=== PATIENT | female | born 1945 | race Caucasian/White ===

== ENCOUNTER 2018-11-08 09:12 | Observation (INO) ==
[2018-11-08] MEDS ORDERED: 0.9 % Sodium Chloride 1,000 ML IVC ONE (10:05)
--- NOTE | 2018-11-08 10:08 | Emergency Department Note ---
Disposition Clinical Impression: Near syncope, Hyponatremia, Hypokalemia Disposition: Admitted As Inpatient Condition: Fair Referrals: Willy Serrano DO [Primary Care Provider] - Forms: ED Satisfaction Letter General Adult HPI - General Chief complaint: ED Syncope Stated complaint: Syncopal Episode Time Seen by Provider: 11/08/18 09:22 Source: patient Mode of arrival: private vehicle Limitations: no limitations Nursing Notes Reviewed: Yes Vital Signs Reviewed: Yes - History of Present Illness HPI Narrative: Patient is a 73-year-old female with past medical history including hypertension, hypothyroidism, diabetes mellitus, anxiety presenting with chief complaint of near syncope for the past week. The patient states she has significant anxiety and she is prescribed Xanax 0.5 mg 4 times a day as needed. She states she has been under increased stress and anxiety for the past several weeks that she is moved with her to a condo. She states she has been taking more Xanax than prescribed and ran out approximately 5 days ago. She states she has not been able to see her psychiatrist since. For the past week, she has not been eating and drinking much. She complains of intermittent episodes of near syncope, feeling lightheaded and like she is going to pass out, while standing up and with ambulation. She denies loss of consciousness, falls, hitting her head. She denies vision changes, slurred speech, confusion, unilateral weakness or paresthesias. She is presenting here for further evaluation as her primary care physician is on vacation. She denies chest pain, shortness of breath, abdominal pain, nausea or vomiting. She denies lower extremity swelling, recent travel or surgery, hormone therapy, history of blood clots. Pain Scale: 0 All systems ED: reviewed and negative except as stated. Review of Systems: As Per HPI Constitutional: Denies: fever, chills Cardiovascular: Reports: syncope. Denies: chest pain, palpitations, edema Respiratory: Denies: cough, dyspnea Gastrointestinal: Denies: abdominal pain, nausea, vomiting Genitourinary: Denies: dysuria Musculoskeletal: Denies: back pain Neurological: Denies: headache, weakness Past Medical History - Past Medical History Attestation: Yes The following information was validated with the patient. Source: patient Medical history: Reports: diabetes, hypertension Psychiatric history: Reports: anxiety - Social History Smoking Status: Never smoker Smokeless Tobacco Status: No Alcohol use: Reports: rarely Drug use: Reports: none Physical Exam - General Limitations: no limitations General appearance: in no apparent distress, anxious - Head Head exam: atraumatic, normocephalic, normal inspection - Eye Eye exam: Present: normal appearance, PERRL, EOMI. Absent: conjunctival injection, nystagmus - ENT ENT exam: normal exam, normal oropharynx - Neck Neck exam: Present: normal inspection, trachea midline - Chest Chest inspection: Present: normal inspection, symmetric chest wall rise - Respiratory Respiratory exam: Present: normal lung sounds bilaterally. Absent: respiratory distress, wheezes - Cardiovascular Cardiovascular exam: Present: regular rate, normal rhythm, normal heart sounds, other (bilateral radial pulses equal) - Abdominal Exam Abdominal exam: Present: soft, Non-Tender. Absent: distention - Extremities Exam Extremities exam: Present: normal inspection, normal capillary refill. Absent: pedal edema, calf tenderness - Neurological Exam Neurological exam: Present: alert, oriented X3, CN II-XII intact. Absent: motor sensory deficit - Expanded Neurological Exam Speech: Present: fluid speech Cerebellar function: finger to nose: Normal Motor strength - LUE: 5/5 Motor strength - RUE: 5/5 Motor strength - LLE: 5/5 Motor strength - RLE: 5/5 Upper motor neuron exam: raul neglect: Absent bilaterally Sensory exam upper extremity: light touch: Normal Sensory exam lower extremity: light touch: Normal - Psychiatric Psychiatric exam: Present: normal affect, normal mood - Skin Skin exam: Present: warm, dry. Absent: diaphoresis, pallor Course Vital Signs Temperature 98.0 F 11/08/18 09:13 Pulse Rate 108 11/08/18 09:13 Respiratory Rate 20 11/08/18 09:13 Blood Pressure 157/90 11/08/18 09:13 O2 Sat by Pulse Oximetry 95 11/08/18 09:13 Temperature 98.0 F 11/08/18 09:13 Pulse Rate 86 11/08/18 10:32 Respiratory Rate 18 11/08/18 10:32 Blood Pressure 136/100 11/08/18 10:32 O2 Sat by Pulse Oximetry 97 11/08/18 10:32 Oxygen Delivery Oxygen Delivery Room Air Medical Decision Making - [facility] Narrative Medical decision making narrative: Patient is presenting with 1 week history of near-syncope. This has been preceded with increased stress and anxiety, decreased by mouth intake. Syncope may be secondary to hypovolemia. Patient has not had loss of consciousness, falls hitting her head, she has a normal physical exam, nonfocal neurologic exam. We will obtain electrolytes, CBC, BMP, obtain EKG to evaluate for arrhythmias. We will obtain chest x-ray as she has a dry cough for several weeks, urinalysis. Patient denies any chest pain, shortness of breath. We will give the patient a liter of fluids that she appears dry. We will have her ambulate as well. Disposition pending. 11:20 Labs and imaging reviewed. Chest x-ray shows cardiomegaly, no consolidation or evidence of pneumonia. She does have mild electrolyte abnormalities with sodium 127 and potassium 3.2. This is likely secondary to patient's decreased by mouth intake. She does have an elevated specific gravity however her BUN and creatinine are within normal limits. Her prior lab work shows her sodium to be 138-140 in the past. Will give her PO potassium pill. We will admit the patient for near syncope and hyponatremia. She will require cardiac monitoring as well. Hospitalist has been paged. She does not appear to have benzo withdrawal at this time. 1120 hrs.: With these labs and hyponatremia and her complaints I think it be best to bring her into the hospital. We will discuss with her and then hospitalist. 11:25 Discussed with hospitalist, Dr. Mustafa who accepts admission - Medical Records Medical records reviewed: Yes I reviewed the patient's medical records. - Lab Data Lab results reviewed: Yes I reviewed the patient's lab results. Result diagrams: 11/08/18 10:21 11/08/18 10:21 Lab Results 11/08/18 11/08/18 11/08/18 Range/Units 10:21 10:21 10:48 WBC 10.0 (4.3-11.1) K/mcL RBC 4.36 (3.82-4.97) M/mcL Hgb 11.6 (11.5-15.4) g/dL Hct 35.1 L (35.3-44.9) % MCV 80.5 L (83.0-100.0) fL MCH 26.6 L (28.0-33.3) pg MCHC 33.0 (31.6-35.5) g/dL RDW 15.2 H (11.5-14.5) % Plt Count 414 H (140-400) K/mcL MPV 8.9 L (9.4-12.4) fL Immature Gran % 0.3 (0-4) % Seg Neutrophils % 81.2 % Lymphocytes % 11.2 % Monocytes % 7.0 % Eosinophils % 0.1 % Basophils % 0.2 % Neutrophils # 8.1 (1.6-8.9) K/mcL Lymphocytes # 1.1 (0.6-4.6) K/mcL Monocytes # 0.7 (0.0-1.3) K/mcL Eosinophils # 0.0 (0.0-0.6) K/mcL Basophils # 0.0 (0.0-0.2) K/mcL Sodium 127 L (136-145) mEq/L Potassium 3.2 L (3.5-5.1) mEq/L Chloride 91 L (98-107) mEq/L Carbon Dioxide 24 (23-29) mEq/L BUN 13 (8-23) mg/dL Creatinine 0.67 (0.60-1.20) mg/dL Est GFR ( Amer) > 60 (> 60) Est GFR (Non-Af Amer) > 60 (> 60) BUN/Creatinine Ratio 19 (6-26) Glucose 163 H (70-105) mg/dL Calculated Osmolality 268 L (280-300) Calcium 10.4 H (8.6-10.3) mg/dL Urine Color Dark Yellow (Yellow) Urine Clarity Clear (Clear) Urine pH 6.0 (5.0-8.0) pH Units Ur Specific [place] 1.026 H (1.010-1.025) Urine Protein 30 H (Neg-Trace) mg/dL Urine Glucose (UA) Normal (Normal) mg/dL Urine Ketones Trace H (Negative) mg/dL Urine Blood Negative (Negative) Urine Nitrite Negative (Negative) Urine Bilirubin Negative (Negative) Urine Urobilinogen Normal (Normal) mg/dL Ur Leukocyte Esterase Negative (Negative) Urine Microscopic RBC 0-3 (0-3) per hpf Urine Microscopic WBC 0-3 (0-3) per hpf Ur Squamous Epith Cells Many H (None-Few) per lpf Urine Bacteria Few (None-Few) per hpf Hyaline Casts Few (None-Few) per lpf Urine Yeast Test Not Performed - Radiology Data Radiology results reviewed: Yes I reviewed the patient's radiology results. Chest X-Ray 11/08/18 10:06 IMPRESSION: 1. No active pulmonary disease. 2. Cardiomegaly without overt failure. 3. Retrocardiac density. This was shown to be a a large hiatal hernia on a prior CT scan dated 05/28/2012. D/ / Rudy Franklin MD / Rudy Franklin MD Interpreting Provider: Rudy Franklin MD - EKG Data EKG #1 EKG attestation: Yes I reviewed and interpreted this EKG. EKG results narrative: EKG was obtained at 1046 shows sinus rhythm with heart rate 96, NC interval 184, QRS duration 117, QTC 458. Incomplete right bundle branch block. No ST sierra vation or depression. Attestation Statement - Attestation Attestation: This documentation is done with the assistance of Dragon dictation. Despite efforts made to ensure accuracy, there may be inaccuracies in calculating machine operator or spelling and typographical errors. I examined this patient and my medical decision-making was reviewed with the Resident Physician. I agree with the documented findings, disposition and treatment plan as described except to the extent set forth below. Patient seen and evaluated today by Dr. Ivory and myself, I agree with her evaluation and management plan, I supervised the care the patient's stay. Patient presents today with some generalized weakness. She states she thinks she had a stroke last week but did not get seen. She says it has not gotten any worse. She speaking okay she is has a flight of ideas. She tells me that she was taking Xanax 4 times a day and stopped taking that a week ago. She did not she occasionally sweats she does not have any chest pain. She has nothing focal neuro exam. Labs on her give her some benzodiazepines and reassess. She is in agreement with this plan.
[2018-11-08 10:33] LABS: Basophils % 0.2 %; Eosinophils % 0.1 %; Hematocrit 35.1 % (35.3-44.9); Hemoglobin 11.6 g/dL (11.5-15.4); Immature Granulocytes % 0.3 % (0-4); Lymphocytes # 1.1 K/mcL (0.6-4.6); Lymphocytes % 11.2 %; Mean Corpuscular Hemoglobin 26.6 pg (28.0-33.3); Mean Corpuscular Volume 80.5 fL (83.0-100.0); Mean Platelet Volume 8.9 fL (9.4-12.4); Monocytes # 0.7 K/mcL (0.0-1.3); Neutrophils # 8.1 K/mcL (1.6-8.9); Platelet Count 414 K/mcL (140-400); Red Blood Count 4.36 M/mcL (3.82-4.97); Red Cell Distribution Width 15.2 % (11.5-14.5); Segmented Neutrophils % 81.2 %
[2018-11-08 10:53] LABS: BUN/Creatinine Ratio 19 (6-26); Blood Urea Nitrogen 13 mg/dL (8-23); Calcium 10.4 mg/dL (8.6-10.3); Carbon Dioxide 24 mEq/L (23-29); Chloride 91 mEq/L (98-107); Glucose 163 mg/dL (70-105); Osmolality,Calculated 268 (280-300); Potassium 3.2 mEq/L (3.5-5.1); Sodium 127 mEq/L (136-145); eGFR For Non-African Americans > 60 (> 60)
[2018-11-08 10:59] LABS: Bilirubin,Urine Negative (Negative); Blood,Urine Negative (Negative); Clarity,Urine Clear (Clear); Color,Urine Dark Yellow (Yellow); Glucose,Urine (UA) Normal (Normal); Ketones,Urine Trace mg/dL (Negative); Leukocyte Esterase,Urine Negative (Negative); Nitrite,Urine Negative (Negative); Protein,Urine 30 mg/dL (Neg-Trace); Specific Gravity,Urine 1.026 (1.010-1.025); Urobilinogen,Urine Normal (Normal)
[2018-11-08 11:01] LABS: Squamous Epithelial Cell,Urine Many per lpf (None-Few); WBC,Urine 0-3 per hpf (0-3)
[2018-11-08 11:17] LABS: Hyaline Casts,Urine Few per lpf (None-Few)
[2018-11-08 11:18] LABS: RBC,Urine 0-3 per hpf (0-3)
[2018-11-08 11:19] LABS: Bacteria,Urine Few per hpf (None-Few)
[2018-11-08] MEDS ORDERED: Naloxone 0.4 MG/ML INJ IVP PRN (11:30)
[2018-11-08] MEDS ORDERED: Ondansetron 4 MG/2 ML VIAL IVP ONE (11:30)
[2018-11-08] MEDS ORDERED: ALPRAZolam 0.5 MG TABLET PO PRN (11:32)
[2018-11-08 11:56] LABS: Troponin I < 0.03 ng/mL (< 0.04)
[2018-11-08] MEDS: 0.9 % Sodium Chloride 1,000 ML IVC SCH (12:16)
[2018-11-08] MEDS ORDERED: Dextrose Gel 15 GM/37.5 ML TUBE PO PRN ×2 (12:59)
[2018-11-08] MEDS ORDERED: D5% in Water 1,000 ML IVC PRN (12:59)
[2018-11-08] MEDS ORDERED: *HR* Dextrose 50 % in Water (Syg) 50 ML SYRINGE IVP PRN (12:59)
--- NOTE | 2018-11-08 13:00 | Internal Med History&Physical ---
Date of Encounter: 11/08/18 Time of Encounter: 12:00 Internal Medicine - H&P: HPI Chief complaint: Dizziness, feeling like passing out, disorganized speech History of present illness: Ms. Perea is a 73 year old female with pmh of diabetes, hypertension, hypothyroidism presenting with complaints of intermittent light headedness and confusion of about a week's duration. Patient says she recently moved houses and the movement must have stressed her out. She also says she ran out of her xanax about a week ago. In the last one week, according to her son, she has had spells of confusion and tangential thought process and confabulation. Like she has been making up stuff that didn't happen and some of her speech doesn't make sense at times. She says she feels like she's on a cart and about to fall off. She also complains of intermittent light headedness. She denies any fevers or chills, admits to occasional nausea. In the ER, workup is essentially unremarkable so far. She does have low sodium and hypokalemia. CT head pending. She is being admitted for further management Past Med Surg Social Fam HX - Past Medical History Medical history: diabetes, hypertension Psychiatric history: anxiety - Social History Smoking Status: Never smoker Smokeless Tobacco Status: No Alcohol use: rarely Drug use: none Internal Medicine - H&P: Meds Allergy/AdvReac Type Severity Reaction Status Date / Time No Known Allergies Allergy Verified 11/08/18 11:33 All Systems PM: A 10-system review of systems was performed and is negative for pertinent findings except as documented above in the HPI. - Constitutional Constitutional: no chills, no fever(s), no night sweats - EENT Eyes: no change in vision, no discharge, no pain, no photophobia Ears: no ear discharge, no ear pain, no tinnitus Nose, mouth and throat: no dysphagia, no nasal discharge, no neck pain, no sore throat - Cardiovascular Cardiovascular ROS IM: no chest pain, no diaphoresis, no dyspnea, no lightheadedness, no palpitations, no syncope - Respiratory Respiratory: no cough, no dyspnea, no wheezing, no excessive phlegm production - Gastrointestinal Gastrointestinal: no abdominal pain, no diarrhea, no hematemesis, no hematochezia, no melena, no nausea, no vomiting - Genitourinary Genitourinary: no change in urinary stream, no dysuria, no flank pain, no hematuria - Musculoskeletal Musculoskeletal ROS IM: no numbness, no tingling - Integumentary Integumentary IM: no rash, no unusual bruising - Neurological Neurological ROS: no confusion, no convulsions, no focal weakness, no numbness, no tingling, no tremor(s) - Hematologic/Lymphatic Hematologic/Lymphatic: no easy bruising - Constitutional Vitals: Temp Pulse Resp BP Pulse Ox 98.0 F 85 18 136/92 97 11/08/18 09:13 11/08/18 12:22 11/08/18 12:22 11/08/18 12:22 11/08/18 12:22 Exam: NAD - Head Head exam: Present: atraumatic, normocephalic - Eye Eye exam: Present: PERRL, conjuntiva pink, sclera anicteric Pupils: Present: PERRL - Neck Neck exam general surgery: Present: supple, trachea midline. Absent: lymphadenopathy - Respiratory Respiratory exam: Present: CTAB. Absent: accessory muscle use, rales, rhonchi, wheezes - Cardiovascular Cardiovascular exam: Present: RRR, +S1, +S2. Absent: diastolic murmur, gallop, rubs, systolic murmur - GI/Abdominal GI/Abdominal exam: Present: normal bowel sounds, soft, no peritoneal signs. Absent: distended, tenderness - Extremities Exam Extremities exam: Present: warm, radial pulses palpable and symmetrical. Absent: calf tenderness, cyanotic, pedal edema - Neurological Exam Neurological exam: Present: CN II-XII intact, oriented X3, no focal deficits. Absent: pronater drift, facial droop, speech deficit - Skin Skin exam: Present: dry, intact Internal Med - H&P Results - Labs CBC & Chem 7: 11/08/18 10:21 11/08/18 10:21 Labs: Short CBC 11/08/18 Range/Units 10:21 WBC 10.0 (4.3-11.1) K/mcL Hgb 11.6 (11.5-15.4) g/dL Hct 35.1 L (35.3-44.9) % Plt Count 414 H (140-400) K/mcL Neutrophils # 8.1 (1.6-8.9) K/mcL BMP 05/13/19 10:21 Sodium 127 L Potassium 3.2 L Chloride 91 L Carbon Dioxide 24 BUN 13 Creatinine 0.67 Glucose 163 H Calcium 10.4 H Cardiac Enzymes 11/08/18 Range/Units 10:21 Troponin I < 0.03 (< 0.04) ng/mL Urine 11/08/18 Range/Units 10:48 Urine Color Dark Yellow (Yellow) Urine Clarity Clear (Clear) Urine pH 6.0 (5.0-8.0) pH Units Ur Specific [place] 1.026 H (1.010-1.025) Urine Protein 30 H (Neg-Trace) mg/dL Urine Glucose (UA) Normal (Normal) mg/dL - Impressions ITS Impressions Chest X-Ray 11/08/18 10:06 IMPRESSION: 1. No active pulmonary disease. 2. Cardiomegaly without overt failure. 3. Retrocardiac density. This was shown to be a a large hiatal hernia on a prior CT scan dated 05/28/2012. D/ / Rudy Franklin MD / Rudy Franklin MD Interpreting Provider: Rudy Franklin MD - Assessment and Plan (1) Altered mental status Current Visit: Yes Status: Acute Assessment and plan: Pt comes in with altered mental status, intermittent confusion disorganized speech and confabulation of approximately one week duration No focal weakness. Unclear etiology r/o stroke vs psychosis. (unclear psych history) Obtain CT head, start on IV fluids. Obtain home meds, psych consulted and recs appreciated Qualifiers: Qualified Code(s): R41.82 - Altered mental status, unspecified (2) Hyponatremia Current Visit: Yes Status: Acute Assessment and plan: Possibly secondary to dehydration. Will start on IV fluids with normal saline (3) Hypokalemia Current Visit: Yes Status: Acute Assessment and plan: Replaced (4) Hypertension Current Visit: Yes Status: Acute Assessment and plan: Resume home meds as tolerated Qualifiers: Hypertension type: essential hypertension Qualified Code(s): I10 - Essential (primary) hypertension (5) Diabetes Current Visit: Yes Status: Acute Assessment and plan: Insulin as needed Qualifiers: Qualified Code(s): E11.9 - Type 2 diabetes mellitus without complications (6) DVT prophylaxis Current Visit: Yes Status: Acute Assessment and plan: heparin sc - Time Spent With Patient Total time spent is greater than 50% in coordination of care (as documented) at patient's floor/unit and/or counseling patient:
[2018-11-08 14:07] LABS: Estimated Average Glucose 148 mg/dl; Hemoglobin A1C 6.8 %
[2018-11-08] MEDS: Insulin LISPRO 300 UNITS/3 ML VIAL SQ SCH (16:54)
[2018-11-08] MEDS ORDERED: *HR* LORazepam 2 MG/ML VIAL ONE (18:16)
[2018-11-08] MEDS ORDERED: *HR* LORazepam 2 MG/ML VIAL IVP ONE (18:18)
[2018-11-08] MEDS ORDERED: *HR* LORazepam 2 MG/ML VIAL IVP PRN (18:34)
[2018-11-09 01:55] LABS: Basophils % 0.2 %; Eosinophils # 0.1 K/mcL (0.0-0.6); Eosinophils % 0.9 %; Hematocrit 29.9 % (35.3-44.9); Immature Granulocytes % 0.3 % (0-4); Lymphocytes # 2.3 K/mcL (0.6-4.6); Lymphocytes % 24.1 %; Mean Corpuscular HGB Conc 32.1 g/dL (31.6-35.5); Mean Corpuscular Hemoglobin 26.4 pg (28.0-33.3); Mean Corpuscular Volume 82.4 fL (83.0-100.0); Mean Platelet Volume 9.4 fL (9.4-12.4); Monocytes # 0.9 K/mcL (0.0-1.3); Monocytes % 10.1 %; Platelet Count 365 K/mcL (140-400); Red Blood Count 3.63 M/mcL (3.82-4.97); Red Cell Distribution Width 15.7 % (11.5-14.5); Segmented Neutrophils % 64.4 %
[2018-11-09 01:58] LABS: Hemoglobin 9.6 g/dL (11.5-15.4)
[2018-11-09 02:13] LABS: BUN/Creatinine Ratio 21 (6-26); Blood Urea Nitrogen 11 mg/dL (8-23); Calcium 8.2 mg/dL (8.6-10.3); Carbon Dioxide 23 mEq/L (23-29); Chloride 98 mEq/L (98-107); Glucose 123 mg/dL (70-105); Magnesium 1.6 mg/dL (1.6-2.6); Osmolality,Calculated 265 (280-300); Phosphorous 2.7 mg/dL (2.7-4.5); Potassium 3.3 mEq/L (3.5-5.1); Sodium 127 mEq/L (136-145); eGFR For Non-African Americans > 60 (> 60)
--- NOTE | 2018-11-09 04:00 | Electrocardiograph Report ---
[place] [facility] Test Date: 2018-11-08 Pat Name: Mariel Perea Department: EXAM11 Room: 3B13 Gender: F Dev Ops Engineer: : [id number] Requested By: Antoinette Ivory Order Number: [id number] Reading MD: Jan Fam Measurements Intervals [place] Rate: 96 P: 65 DE: 184 QRS: 38 QRSD: 117 T: 27 QT: 362 QTc: 458 Interpretive Statements Sinus rhythm Electronically Signed On 11-09-2018 3:58:56 EDT by Jan Fam
[2018-11-09] MEDS: Insulin LISPRO 300 UNITS/3 ML VIAL SQ SCH ×3 (08:00→16:41)
[2018-11-09] MEDS: 0.9 % Sodium Chloride 1,000 ML IVC SCH ×2 (09:41)
--- NOTE | 2018-11-09 11:55 | Consult Note ---
Date of Encounter: 11/09/18 Time of Encounter: 11:55 Assessment & Recommendation (1) Benzodiazepine withdrawal with perceptual disturbance Current visit: Yes Status: Acute Assessment & Recommendation: The patient's symptoms seem consistent with benzodiazepine withdrawal however it is good that the primary team is working up to rule out any other potential serious medical causes. She is currently off the Xanax. A longer acting benzodiazepine such as Ativan at an equivalent dose would be a better choice for her given the short half-life of Xanax and the quick onset which can lead to rebound anxiety and overtaking the medication. She does not currently meet criteria for inpatient hospitalization. Recommend linkage with [facility]. History of Present Illness Patient: new to practice Requesting Physician: Jamari Caceres Reason for consult: xanax withdrawal History of present illness: Ms. Perea is a 73 year old female with pmh of diabetes, hypertension, hypothyroidism presenting with complaints of intermittent light headedness and confusion of about a week's duration. Patient says she recently moved from a over [address]. house which she had lived for years to a small condo and had to get rid of many belongings over the course of 2 weeks and the movement must have stressed her out. She also says she was taking excess of her Xanax during this time to deal with the stress and ran out of her xanax about 2 weeks ago. She said that since that time she has been having spells of confusion where she would feel as though she could not find the right words she had a sensation of nausea and vomiting abdominal pain felt as though she was going to pass out and at one point did get all the way to the floor. She also reports that she has been feeling somewhat diaphoretic. According to her son at times during these episodes she has been making up stuff that didn't happen and some of her speech doesn't make sense at times. She reports that now that she is fully off the Xanax and has gotten a few doses of Ativan to help she has been feeling much better. She reports these confused episodes.. She reports that she still has somewhat sad regarding leaving her other house but she feels it was for the past. She suicidal thoughts, ideations, or plans. She has no psychotic symptoms. She has no homicidal thoughts CC: Jamari Caceres Past Med Surg Social Fam HX - Past Medical History Medical history: diabetes, hypertension - Past Psychiatric History Psychiatric history: Reports: depression. Denies: prior suicide attempt, previous psychiatric hospitalization Past psychiatric history details: She reports that she has never been hospitalized psychiatrically. She has been seen by Dr. Antoine Macias in the community but wants to switch to [facility]. She has no prior suicide attempts. Family psychiatric history: No Family History of Suicide: None - Social History Smoking Status: Never smoker Smokeless Tobacco Status: No Alcohol use: rarely Drug use: none Occupational status: retired Current living situation: Home - Independent Activity Level: Independent ambulation Recent Out of Country Travel Within the Last 8 Weeks: No Exposure or Possible Exposure to Illness During Travel: No Additional social history: She lives with her who is in his 80s and has Parkinson's disease. She has supportive family. She is retired. - Family History Mother Living Status: Hx Family Cancer: Yes (breast) Father Living Status: Hx Family Cardiac Disorders: Yes Medications & Allergies Duloxetine HCl [Cymbalta] 60 mg PO DAILY 11/08/18 [History] Halobetasol Propionate [Ultravate] 1 appl TP BID 11/08/18 [History] Levothyroxine Sodium 25 mcg PO QAM 11/08/18 [History] Lisinopril-HCTZ 10-12.5 [Prinzide 10-12.5] 1 tab PO DAILY 11/08/18 [History] Loperamide [Imodium] 2 mg PO AD PRN 11/08/18 [History] Omeprazole [PriLOSEC] 40 mg PO DAILY 11/08/18 [History] Ondansetron HCl 4 mg PO Q8H PRN 11/08/18 [History] Triamcinolone Acet 0.1% OINT [Kenalog] 1 appl TP BID PRN 11/08/18 [History] lamoTRIgine [Lamictal] 100 mg PO DAILY 11/08/18 [History] Allergy/AdvReac Type Severity Reaction Status Date / Time morphine AdvReac Nausea Verified 11/08/18 15:52 Review of Systems Constitutional: Reports: weakness Eyes: Denies: eye pain Ears, Nose, Throat: Denies: ear pain Cardiovascular: Reports: syncope (Near-syncope). Denies: chest pain Respiratory: Denies: cough Gastrointestinal: Reports: nausea, vomiting Genitourinary female: Denies: urgency Musculoskeletal: Reports: myalgia Integumentary: Denies: rash Neurological: Reports: headache, weakness, confusion, memory loss Psychiatric: Reports: depression (Mild). Denies: suicidal ideation, homicidal ideation Endocrine: Reports: fatigue Hematologic/Lymphatic: Denies: easy bleeding Allergic/Immunologic: Denies: facial swelling Psychiatry Exam - Constitutional Vitals: Temp Pulse Resp BP Pulse Ox 98.0 F 64 17 115/73 96 11/09/18 11:17 11/09/18 11:17 11/09/18 11:17 11/09/18 11:17 11/09/18 11:17 General appearance: age & developmentally appropriate - Musculoskeletal Gait: other (In bed) Station: relaxed Strength & Tone: normal for patient - Psychiatric Patient Orientation: Yes Person, Yes Time, Yes Place, Yes Circumstance Level of alertness: Alert Behavior: calm Psychomotor activity: Normal Eye Contact: Maintains Eye Contact Mood Description: Euthymic/stable Patient description of mood: Better Affect description: congruent with mood Speech Volume: Normal Speech pattern: normal rate Language & Vocabulary: consistent with education Thought Process: Linear, Goal Oriented Thought Content: No Suicidal ideation, No Homicidal ideation, No Overt delusions Perceptual Disturbances: No Auditory hallucinations, No Visual hallucinations Attention Span Ability: Capable of Focused Attention Memory Description: Grossly Intact Patient Reliability: Reliable Historian Fund of knowledge: Yes abstraction ability, Yes aware of current events Intelligence Estimate: Average Judgment: Good Insight: Full Results - Drug Levels and Toxicology Drug Levels and Toxicology: Short CBC 11/09/18 Range/Units 00:42 WBC 9.3 (4.3-11.1) K/mcL Hgb 9.6 L D (11.5-15.4) g/dL Hct 29.9 L (35.3-44.9) % Plt Count 365 (140-400) K/mcL Neutrophils # 6.0 (1.6-8.9) K/mcL BMP 11/09/18 Range/Units 00:42 Sodium 127 L (136-145) mEq/L Potassium 3.3 L (3.5-5.1) mEq/L Chloride 98 (98-107) mEq/L Carbon Dioxide 23 (23-29) mEq/L BUN 11 (8-23) mg/dL Creatinine 0.52 L (0.60-1.20) mg/dL Glucose 123 H (70-105) mg/dL Calcium 8.2 L (8.6-10.3) mg/dL Cardiac Enzymes 11/09/18 05 Range/Units 00:42 17:24 Troponin I 0.03 < 0.03 (< 0.04) ng/mL - Labs Labs: Laboratory Last Values WBC 9.3 K/mcL (4.3-11.1) 11/09/18 00:42 RBC 3.63 M/mcL (3.82-4.97) L 11/09/18 00:42 Hgb 9.6 g/dL (11.5-15.4) L D 11/09/18 00:42 Hct 29.9 % (35.3-44.9) L 11/09/18 00:42 MCV 82.4 fL (83.0-100.0) L 11/09/18 00:42 MCH 26.4 pg (28.0-33.3) L 11/09/18 00:42 MCHC 32.1 g/dL (31.6-35.5) 11/09/18 00:42 RDW 15.7 % (11.5-14.5) H 11/09/18 00:42 Plt Count 365 K/mcL (140-400) 11/09/18 00:42 MPV 9.4 fL (9.4-12.4) 11/09/18 00:42 Immature Gran % 0.3 % (0-4) 11/09/18 00:42 Seg Neutrophils % 64.4 % 11/09/18 00:42 24.1 % 11/09/18 00:42 10.1 % 11/09/18 00:42 0.9 % 11/09/18 00:42 0.2 % 11/09/18 00:42 6.0 K/mcL (1.6-8.9) 11/09/18 00:42 2.3 K/mcL (0.6-4.6) 11/09/18 00:42 0.9 K/mcL (0.0-1.3) 11/09/18 00:42 0.1 K/mcL (0.0-0.6) 11/09/18 00:42 0.0 K/mcL (0.0-0.2) 11/09/18 00:42 Sodium 127 mEq/L (136-145) L 11/09/18 00:42 Potassium 3.3 mEq/L (3.5-5.1) L 11/09/18 00:42 Chloride 98 mEq/L (98-107) 11/09/18 00:42 Carbon Dioxide 23 mEq/L (23-29) 11/09/18 00:42 BUN 11 mg/dL (8-23) 11/09/18 00:42 0.52 mg/dL (0.60-1.20) L 11/09/18 00:42 Est GFR ( Amer) > 60 (> 60) 11/09/18 00:42 Est GFR (Non-Af Amer) > 60 (> 60) 11/09/18 00:42 21 (6-26) 11/09/18 00:42 Glucose 123 mg/dL (70-105) H 11/09/18 00:42 POC Glucose 145 mg/dL (70-99) H 11/08/18 18:10 Est Mean Plasma Glucose 148 mg/dl 11/08/18 10:21 6.8 % (-5.6) H 11/08/18 10:21 265 (280-300) L 11/09/18 00:42 Calcium 8.2 mg/dL (8.6-10.3) L 11/09/18 00:42 Phosphorus 2.7 mg/dL (2.7-4.5) 11/09/18 00:42 Magnesium 1.6 mg/dL (1.6-2.6) 11/09/18 00:42 0.03 ng/mL (< 0.04) 11/09/18 00:42 Dark Yellow (Yellow) 11/08/18 10:48 Clear (Clear) 11/08/18 10:48 6.0 pH Units (5.0-8.0) 11/08/18 10:48 Ur Specific O'Brien 1.026 (1.010-1.025) H 11/08/18 10:48 30 mg/dL (Neg-Trace) H 11/08/18 10:48 Normal mg/dL (Normal) 11/08/18 10:48 Trace mg/dL (Negative) H 11/08/18 10:48 Negative (Negative) 11/08/18 10:48 Negative (Negative) 11/08/18 10:48 Negative (Negative) 11/08/18 10:48 Normal mg/dL (Normal) 11/08/18 10:48 Ur Leukocyte Esterase Negative (Negative) 11/08/18 10:48 0-3 per hpf (0-3) 11/08/18 10:48 0-3 per hpf (0-3) 11/08/18 10:48 Ur Squamous Epith Cells Many per lpf (None-Few) H 11/08/18 10:48 Few per hpf (None-Few) 11/08/18 10:48 Hyaline Casts Few per lpf (None-Few) 11/08/18 10:48 Test Not Performed 11/08/18 10:48 - Impressions Impressions Head CT 11/08/18 12:44 IMPRESSION: 1. No acute intracranial abnormality. D/ / Bernabe Chaudhry MD / Bernabe Chaudhry MD Interpreting Provider: Bernabe Chaudhry MD Consult Discharge Plan - Plan Referrals: Willy Serrano DO [Primary Care Provider] -
--- NOTE | 2018-11-09 14:31 | Discharge Summary ---
- NOTES TO OUTPATIENT PROVIDER Notes to Outpatient Provider: f/u with PCP in one week. f/u with Psychiatrist in 1-2 weeks. Please uase Ativan 0.5mg PO TID as needed for anxiety. please stop taking HCTZ ( water pill ) since it is causing hyponatremia and hypokalemia Orders not resulted at time of discharge: Pending orders 11/08/18 13:37 Culture,Blood [BC] Routine 11/08/18 18:14 EKG [ECG 12 lead ECG] [ECG] Stat 11/09/18 09:16 MR head/brain wo con [MR] Routine Date of Encounter: 11/09/18 Time of Encounter: 14:29 - Discharge Diagnosis (1) Benzodiazepine withdrawal with perceptual disturbance Priority: Primary Status: Acute (2) Altered mental status Priority: Primary Status: Acute Qualifiers: Qualified Code(s): R41.82 - Altered mental status, unspecified (3) Hyponatremia Priority: Secondary Status: Acute (4) Hypokalemia Priority: Secondary Status: Acute (5) Hypertension Priority: Secondary Status: Acute Qualifiers: Hypertension type: essential hypertension Qualified Code(s): I10 - Essent ial (primary) hypertension (6) Diabetes Priority: Secondary Status: Acute Qualifiers: Diabetes mellitus type: type 2 Diabetes mellitus terminal gauger insulin use: without jail use Diabetes mellitus complication status: without complication Qualified Code(s): E11.9 - Type 2 diabetes mellitus without complications (7) DVT prophylaxis Priority: Secondary Status: Acute Hospital course: Ms. Perea is a 73 year old female with pmh of diabetes, hypertension, hypothyroidism presenting with complaints of intermittent light headedness and confusion of about a week's duration. Patient says she recently moved houses and the movement must have stressed her out. She also says she ran out of her FiveStars about a week ago. In the last one week, according to her son, she has had spells of confusion and tangential thought process and confabulation. Like she has been making up stuff that didn't happen and some of her speech doesn't make sense at times. In the ER, workup is essentially unremarkable except she does have low sodium and hypokalemia. CT head was unremarkable. She was admitted in the hospital and placed on monitoring and evaluation advisor. She was started on IV hydration. Her hypernatremia seems to be secondary to dehydration and medication HCTZ side effect. So I stopped her HCTZ. Her confusion seems to be secondary to benzo withdrawal symptoms. Pt was evaluated by Psychiatrist and recommend to start her on Ativan PRN and f.u with Psych as an out pt. - Time Spent with Patient Total time spent providing and/or coordinating discharge services: - Discharge Medications Prescriptions: New LORazepam [Ativan] 0.5 mg PO TID PRN 7 Days #20 tablet PRN Reason: Anxiety Lisinopril [Zestril] 20 mg PO DAILY #30 tablet Continued Duloxetine HCl [Cymbalta] 60 mg PO DAILY Halobetasol Propionate [Ultravate] 1 appl TP BID lamoTRIgine [Lamictal] 100 mg PO DAILY Levothyroxine Sodium 25 mcg PO QAM Loperamide [Imodium] 2 mg PO AD PRN PRN Reason: LOOSE STOOLS Omeprazole [PriLOSEC] 40 mg PO DAILY Ondansetron HCl 4 mg PO Q8H PRN PRN Reason: NAUSEA/VOMITING Triamcinolone Acet 0.1% OINT [Kenalog] 1 appl TP BID PRN PRN Reason: PSORASIS Discontinued Lisinopril-HCTZ 10-12.5 [Prinzide 10-12.5] 1 tab PO DAILY Home Medications: Duloxetine HCl [Cymbalta] 60 mg PO DAILY 11/08/18 [History] Halobetasol Propionate [Ultravate] 1 appl TP BID 11/08/18 [History] Levothyroxine Sodium 25 mcg PO QAM 11/08/18 [History] Loperamide [Imodium] 2 mg PO AD PRN 11/08/18 [History] Omeprazole [PriLOSEC] 40 mg PO DAILY 11/08/18 [History] Ondansetron HCl 4 mg PO Q8H PRN 11/08/18 [History] Triamcinolone Acet 0.1% OINT [Kenalog] 1 appl TP BID PRN 11/08/18 [History] lamoTRIgine [Lamictal] 100 mg PO DAILY 11/08/18 [History] LORazepam [Ativan] 0.5 mg PO TID PRN 7 Days #20 tablet 11/09/18 [Rx] Lisinopril [Zestril] 20 mg PO DAILY #30 tablet 11/09/18 [Rx] Allergies/Adverse Reactions: Allergy/AdvReac Type Severity Reaction Status Date / Time morphine AdvReac Nausea Verified 11/08/18 15:52 Date of admission: 11/08/18 12:30 Primary care physician: Willy Serrano DO Consults: 11/08/18 12:46 Consult to Psychiatry [CONS] Routine Consulting Provider: [facility] Reason consult: Psychosis - Constitutional Vitals: Temp Pulse Resp BP Pulse Ox 98.0 F 64 17 115/73 96 11/09/18 11:17 11/09/18 11:17 11/09/18 11:17 11/09/18 11:17 11/09/18 11:17 General appearance: Present: A&O X 3, no acute distress, answers questions appropriately Exam: Gen: Alert, awake, Oriented to time,place and person Chest: Diminished breath sounds B/L, No wheezing, No crackles, No rales Heart: S1S2+ RRR No murmurs Abd: Soft, NT, BS +, No organomegaly Ext: No edema, pulses are palpable, No calf tenderness Neuro : Benign findings Skin: No rash. - Patient Status Disposition: Home, Self-Care Condition: Good Overall status at discharge: patient is back to baseline - Discharge Instructions Follow Up With: Willy Serrano DO [Primary Care Provider] - - Diet and Activity Activity: increase activity as tolerated Diet: advance to your usual diet
[2018-11-09 15:44] VITALS: BP 128/79
[2018-11-09 18:11] LABS: BUN/Creatinine Ratio 14 (6-26); Blood Urea Nitrogen 10 mg/dL (8-23); Calcium 9.3 mg/dL (8.6-10.3); Carbon Dioxide 25 mEq/L (23-29); Chloride 106 mEq/L (98-107); Glucose 119 mg/dL (70-105); Osmolality,Calculated 286 (280-300); Potassium 3.7 mEq/L (3.5-5.1); Sodium 138 mEq/L (136-145); eGFR For Non-African Americans > 60 (> 60)
--- NOTE | 2018-11-10 10:10 | Electrocardiograph Report ---
[place] [id number] Test Date: 2018-11-08 Pat Name: Mariel Perea Department: 113 Room: 3B13 Gender: F Lead Data Architect: : [id number] Requested By: Jamari Caceres Order Number: [id number] Reading MD: Gabrile Glez Measurements Intervals [place] Rate: 92 P: 50 SD: 162 QRS: -22 QRSD: 110 T: 13 QT: 344 QTc: 394 Interpretive Statements SINUS RHYTHM LOW QRS VOLTAGE IN PRECORDIAL LEADS [QRS DEFLECTION < 1.0 mV IN CHEST LEADS] INCOMPLETE RIGHT BUNDLE BRANCH BLOCK [90+ ms QRS DURATION, TERMINAL R IN V1/V2, 40+ ms S IN I/aVL/V4/V5/V6] Electronically Signed On 11-10-2018 10:08:45 EDT by Gabriel Glez
== END 2018-11-09 18:00 | disposition home or self-care (01) ==
LOC: EMEROOARM 09:12 → 3BNU 09:12
PROVIDERS: ADMIT Student in an Organized Health Care Education/Training Program; ATTEND Student in an Organized Health Care Education/Training Program

== ENCOUNTER 2021-10-07 11:40 | Inpatient (IN) ==
[2021-10-07 13:35] LABS: Bacteria,Urine Few per hpf (None-Few); Bilirubin,Urine Small (Negative); Blood,Urine Negative (Negative); Clarity,Urine Turbid (Clear); Color,Urine Dark-Yellow (Yellow); Glucose,Urine (UA) 70 mg/dL (Normal); Hyaline Casts,Urine Moderate per lpf (None Seen); Ketones,Urine Negative (Negative); Leukocyte Esterase,Urine Moderate (Negative); Mucus,Urine Few per lpf (None-Few); Nitrite,Urine Negative (Negative); PH,Urine 6.5 pH Units (5.0-8.0); Protein,Urine 50 mg/dL (Neg-Trace); Specific Gravity,Urine 1.028 (1.010-1.025); Squamous Epithelial Cell,Urine Many per hpf (None-Few); Urobilinogen,Urine >=8.0 mg/dL (Normal); WBC,Urine 15-30 per hpf (0-3)
[2021-10-07] MEDS ORDERED: Isovue-370 500 ML BOTTLE IVP ONE (15:27)
[2021-10-07 17:58] LABS: Basophils % 0.2 %; Eosinophils # 0.1 K/mcL (0.0-0.6); Eosinophils % 0.8 %; Hemoglobin 9.3 g/dL (11.5-15.4); Lymphocytes # 1.5 K/mcL (0.6-4.6); Lymphocytes % 12.4 %; Mean Corpuscular HGB Conc 34.4 g/dL (31.6-35.5); Mean Corpuscular Volume 87.1 fL (83.0-100.0); Mean Platelet Volume 9.1 fL (9.4-12.4); Monocytes # 0.8 K/mcL (0.0-1.3); Monocytes % 6.7 %; Neutrophils # 9.5 K/mcL (1.6-8.9); Platelet Count 463 K/mcL (140-400); Red Cell Distribution Width 15.9 % (11.5-14.5); Segmented Neutrophils % 77.9 %; White Blood Count 12.2 K/mcL (4.3-11.1)
[2021-10-07 18:04] LABS: INR 1.1
[2021-10-07 18:07] LABS: Activated Partial Thrombo Time 31.1 Seconds (26.0-36.0)
[2021-10-07 18:18] LABS: Alanine Aminotransferase 65 Units/L (7-52); Albumin 3.1 g/dL (3.5-5.7); Alkaline Phosphatase 759 Units/L (34-104); Aspartate Amino Transferase 34 Units/L (13-39); BUN/Creatinine Ratio 17 (6-26); Bilirubin,Direct 1.7 mg/dL (0.0-0.2); Bilirubin,Total 3.7 mg/dL (0.3-1.0); Blood Urea Nitrogen 12 mg/dL (8-23); Calcium 8.9 mg/dL (8.6-10.3); Carbon Dioxide 32 mEq/L (23-29); Chloride 80 mEq/L (98-107); Globulin 3.2 g/dL (2.4-3.5); Glucose 329 mg/dL (70-105); Lipase < 3 Units/L (11-82); Osmolality,Calculated 267 (280-300); Sodium 122 mEq/L (136-145); Total Protein 6.3 g/dL (6.4-8.9); eGFR For African Americans > 60 (> 60); eGFR For Non-African Americans > 60 (> 60)
[2021-10-07] MEDS ORDERED: 0.9 % Sodium Chloride 1,000 ML IVC ONE (20:25)
[2021-10-07] MEDS ORDERED: Cefepime HCl 2,000 MG in 0.9 % Sodium Chloride 10 ML IVP ONE (21:15)
[2021-10-07] MEDS ORDERED: Melatonin 3 MG TABLET PO PRN (21:49)
[2021-10-07] MEDS ORDERED: Naloxone 0.4 MG/ML INJ IVP PRN (21:49)
[2021-10-07] MEDS ORDERED: Potassium Chloride Elixir 20 MEQ/15 ML UDC PO ONE (22:38)
[2021-10-07] MEDS ORDERED: Lidocaine Viscous Oral Soln 15 ML SOLUTION MM PRN (23:39)
[2021-10-07] MEDS ORDERED: Simethicone 80 MG TAB.CHEW PO PRN (23:39)
[2021-10-08] MEDS ORDERED: 0.9 % Sodium Chloride 1,000 ML IVC SCH (00:15)
[2021-10-08 08:04] LABS: Basophils % 0.2 %; Eosinophils # 0.1 K/mcL (0.0-0.6); Eosinophils % 0.9 %; Hematocrit 20.6 % (35.3-44.9); Lymphocytes # 1.5 K/mcL (0.6-4.6); Lymphocytes % 14.3 %; Mean Corpuscular HGB Conc 35.4 g/dL (31.6-35.5); Mean Corpuscular Hemoglobin 30.8 pg (28.0-33.3); Mean Corpuscular Volume 86.9 fL (83.0-100.0); Mean Platelet Volume 9.4 fL (9.4-12.4); Monocytes # 0.9 K/mcL (0.0-1.3); Monocytes % 7.9 %; Platelet Count 452 K/mcL (140-400); Red Blood Count 2.37 M/mcL (3.82-4.97); Red Cell Distribution Width 15.9 % (11.5-14.5); Segmented Neutrophils % 74.7 %; White Blood Count 10.8 K/mcL (4.3-11.1)
[2021-10-08 08:12] LABS: Hemoglobin 7.3 g/dL (11.5-15.4)
[2021-10-08 08:23] LABS: Alanine Aminotransferase 45 Units/L (7-52); Albumin 2.6 g/dL (3.5-5.7); Alkaline Phosphatase 546 Units/L (34-104); Aspartate Amino Transferase 19 Units/L (13-39); BUN/Creatinine Ratio 17 (6-26); Bilirubin,Total 2.6 mg/dL (0.3-1.0); Blood Urea Nitrogen 8 mg/dL (8-23); Calcium 8.2 mg/dL (8.6-10.3); Carbon Dioxide 28 mEq/L (23-29); Chloride 94 mEq/L (98-107); Globulin 2.5 g/dL (2.4-3.5); Glucose 213 mg/dL (70-105); Magnesium 1.3 mg/dL (1.6-2.6); Osmolality,Calculated 273 (280-300); Phosphorous 2.6 mg/dL (2.7-4.5); Potassium 3.9 mEq/L (3.5-5.1); Sodium 129 mEq/L (136-145); Thyroid Stimulating Hormone 6.052 mcIU/mL (0.340-5.600); Total Protein 5.1 g/dL (6.4-8.9); eGFR For African Americans > 60 (> 60); eGFR For Non-African Americans > 60 (> 60)
[2021-10-08] MEDS: lamoTRIgine 100 MG TABLET PO SCH (08:52)
[2021-10-08] MEDS: atenoloL 50 MG TABLET PO SCH (08:53)
[2021-10-08] MEDS ORDERED: *HR* FentaNYL (PF) 100 MCG/2 ML VIAL ONE (13:27)
[2021-10-08] MEDS ORDERED: *HR* Propofol 200 MG/20 ML VIAL IVP ONE (13:28)
[2021-10-08] MEDS ORDERED: Lidocaine -MPF 2% 2 ML VIAL ONE (13:28)
[2021-10-08] MEDS ORDERED: Ondansetron 4 MG/2 ML VIAL ONE (13:44)
[2021-10-08] MEDS ORDERED: *HR* FentaNYL (PF) 100 MCG/2 ML VIAL IVP PRN (14:16)
[2021-10-08] MEDS ORDERED: Ondansetron 4 MG/2 ML VIAL IVP PRN (14:16)
[2021-10-08] MEDS ORDERED: *HR* Rocuronium Bromide 50 MG/5 ML VIAL ONE (14:34)
[2021-10-08] MEDS ORDERED: TRIAMCINOLONE ACETONIDE TP PRN (14:38)
[2021-10-08] MEDS ORDERED: CALCIPOTRIENE TP PRN (14:38)
[2021-10-08] MEDS: rOPINIRole 1 MG TABLET PO SCH (20:48)
[2021-10-09] MEDS ORDERED: Isovue-370 500 ML BOTTLE IVP ONE (08:44)
[2021-10-09] MEDS ORDERED: lamoTRIgine 25 MG TABLET PO SCH (09:00)
[2021-10-09] MEDS: Cyanocobalamin (B-12) 1,000 MCG TABLET PO SCH (10:02)
[2021-10-09] MEDS: Celecoxib 200 MG CAPSULE PO SCH (10:02)
[2021-10-09] MEDS: atenoloL 50 MG TABLET PO SCH (10:02)
[2021-10-09] MEDS: lisinopriL 20 MG TABLET PO SCH (10:03)
[2021-10-09] MEDS: Ringers Solution, Lactated 1,000 ML IVC SCH ×2 (10:09→18:00)
[2021-10-09] MEDS: lamoTRIgine 100 MG TABLET PO SCH (10:26)
[2021-10-09] MEDS ORDERED: Ondansetron ODT 4 MG TAB.RAPDIS PO PRN (10:49)
[2021-10-09] MEDS: rOPINIRole 1 MG TABLET PO SCH (19:52)
[2021-10-09] MEDS: Chlorhexidine Rinse 15 ML MOUTHWASH MM PRN (19:54)
[2021-10-10] MEDS: Ringers Solution, Lactated 1,000 ML IVC SCH ×3 (00:54→21:12)
[2021-10-10 05:33] LABS: Basophils % 0.2 %; Eosinophils # 0.1 K/mcL (0.0-0.6); Eosinophils % 1.3 %; Hematocrit 18.6 % (35.3-44.9); Hemoglobin 6.1 g/dL (11.5-15.4); Immature Granulocytes % 2.4 % (0-4); Lymphocytes # 1.8 K/mcL (0.6-4.6); Lymphocytes % 18.3 %; Mean Corpuscular HGB Conc 32.8 g/dL (31.6-35.5); Mean Corpuscular Hemoglobin 30.8 pg (28.0-33.3); Mean Corpuscular Volume 93.9 fL (83.0-100.0); Mean Platelet Volume 8.7 fL (9.4-12.4); Monocytes # 0.6 K/mcL (0.0-1.3); Monocytes % 5.8 %; Neutrophils # 6.9 K/mcL (1.6-8.9); Nucleated Red Blood Cells 0.2 /100 WBC (0); Platelet Count 434 K/mcL (140-400); Red Blood Count 1.98 M/mcL (3.82-4.97); Red Cell Distribution Width 16.9 % (11.5-14.5); White Blood Count 9.6 K/mcL (4.3-11.1)
[2021-10-10 05:44] LABS: % Iron Saturation 8 % (15-50); Albumin 2.6 g/dL (3.5-5.7); Albumin/Globulin Ratio 1.2 (1.1-2.2); Bilirubin,Direct 0.9 mg/dL (0.0-0.2); Bilirubin,Indirect 1.1 mg/dL (0.0-1.0); Globulin 2.2 g/dL (2.4-3.5); Iron 19 mcg/dL (50-170); Total Protein 4.8 g/dL (6.4-8.9); Transferrin 173 mg/dL (203-362)
[2021-10-10 05:45] LABS: BUN/Creatinine Ratio 18 (6-26); Blood Urea Nitrogen 9 mg/dL (8-23); Calcium 8.1 mg/dL (8.6-10.3); Carbon Dioxide 23 mEq/L (23-29); Chloride 96 mEq/L (98-107); Glucose 174 mg/dL (70-105); Magnesium 1.3 mg/dL (1.6-2.6); Osmolality,Calculated 265 (280-300); Phosphorous 2.5 mg/dL (2.7-4.5); Potassium 4.2 mEq/L (3.5-5.1); Sodium 126 mEq/L (136-145); eGFR For African Americans > 60 (> 60); eGFR For Non-African Americans > 60 (> 60)
[2021-10-10] MEDS: Celecoxib 200 MG CAPSULE PO SCH (08:03)
[2021-10-10] MEDS: lamoTRIgine 100 MG TABLET PO SCH (08:03)
[2021-10-10] MEDS: Cyanocobalamin (B-12) 1,000 MCG TABLET PO SCH (08:03)
[2021-10-10] MEDS: lisinopriL 20 MG TABLET PO SCH (08:10)
[2021-10-10] MEDS: atenoloL 50 MG TABLET PO SCH (08:10)
[2021-10-10] MEDS ORDERED: NON-FORMULARY MEDICATION 1 EACH EACH (Duloxetine Hcl [Cymbalta] 60 MG Capsule.Dr) PO SCH (09:00)
[2021-10-10] MEDS ORDERED: 0.9 % Sodium Chloride 250 ML ONE (09:22)
[2021-10-10] MEDS ORDERED: Lidocaine HCL 4 ML Topical Solution (Laryng-O-Jet Kit Sterile Pak) TP ONE (14:09)
[2021-10-10 15:16] LABS: Hematocrit 23.5 % (35.3-44.9)
[2021-10-10 15:18] LABS: Hemoglobin 7.9 g/dL (11.5-15.4)
[2021-10-10] MEDS ORDERED: Lidocaine -MPF 2% 2 ML VIAL ONE (16:40)
[2021-10-10] MEDS ORDERED: Ringers Solution, Lactated 1,000 ML IVC SCH (17:30)
[2021-10-10] MEDS ORDERED: Ondansetron 4 MG/2 ML VIAL ONE (17:52)
[2021-10-10] MEDS ORDERED: *HR* FentaNYL (PF) 100 MCG/2 ML VIAL ONE (17:52)
[2021-10-10] MEDS ORDERED: EPHEDrine 50 MG/ML VIAL ONE (17:59)
[2021-10-10] MEDS ORDERED: *HR* Rocuronium Bromide 50 MG/5 ML VIAL ONE (18:01)
[2021-10-10] MEDS ORDERED: Sugammadex Sodium 200 MG/2 ML VIAL IV ONE (18:11)
[2021-10-10] MEDS ORDERED: *HR* Phenylephrine 10 MG/ML VIAL ONE (18:16)
[2021-10-10] MEDS ORDERED: *HR* Metoprolol 5 MG/5 ML VIAL IVP ONE (18:23)
[2021-10-10] MEDS: rOPINIRole 1 MG TABLET PO SCH (21:25)
[2021-10-11] MEDS: Ringers Solution, Lactated 1,000 ML IVC SCH (01:47)
[2021-10-11] MEDS: lamoTRIgine 100 MG TABLET PO SCH (09:02)
[2021-10-11] MEDS: lisinopriL 20 MG TABLET PO SCH (09:03)
[2021-10-11] MEDS: Cyanocobalamin (B-12) 1,000 MCG TABLET PO SCH (09:04)
[2021-10-11] MEDS: Celecoxib 200 MG CAPSULE PO SCH (09:04)
[2021-10-11] MEDS: atenoloL 50 MG TABLET PO SCH (09:05)
[2021-10-11 12:26] LABS: Hematocrit 20.1 % (35.3-44.9); Mean Corpuscular HGB Conc 34.8 g/dL (31.6-35.5); Mean Corpuscular Hemoglobin 31.5 pg (28.0-33.3); Mean Corpuscular Volume 90.5 fL (83.0-100.0); Platelet Count 270 K/mcL (140-400); Red Blood Count 2.22 M/mcL (3.82-4.97); Red Cell Distribution Width 16.5 % (11.5-14.5); White Blood Count 27.2 K/mcL (4.3-11.1)
[2021-10-11 12:51] LABS: Anisocytosis 1+ (Not Present); Lymphocytes # 1.1 K/mcL (0.6-4.6); Monocytes # 0.5 K/mcL (0.0-1.3); Platelet Estimate Normal (Normal)
[2021-10-11] MEDS: Chlorhexidine Rinse 15 ML MOUTHWASH MM PRN (13:09)
[2021-10-11] MEDS ORDERED: 0.9 % Sodium Chloride 250 ML ONE (15:14)
[2021-10-11] MEDS: Iron Sucrose Complex 200 MG in 0.9 % Sodium Chloride 100 ML IVPB SCH (18:07)
[2021-10-11] MEDS: rOPINIRole 1 MG TABLET PO SCH (21:02)
[2021-10-11 22:38] LABS: Basophils % 0.2 %; Hematocrit 25.5 % (35.3-44.9); Hemoglobin 8.1 g/dL (11.5-15.4); Immature Granulocytes % 3.6 % (0-4); Lymphocytes # 0.7 K/mcL (0.6-4.6); Lymphocytes % 3.6 %; Mean Corpuscular HGB Conc 31.8 g/dL (31.6-35.5); Mean Corpuscular Hemoglobin 31.4 pg (28.0-33.3); Mean Platelet Volume 8.8 fL (9.4-12.4); Monocytes # 0.3 K/mcL (0.0-1.3); Monocytes % 1.7 %; Neutrophils # 16.4 K/mcL (1.6-8.9); Platelet Count 213 K/mcL (140-400); Red Blood Count 2.58 M/mcL (3.82-4.97); Red Cell Distribution Width 16.6 % (11.5-14.5); Segmented Neutrophils % 90.9 %; White Blood Count 18.1 K/mcL (4.3-11.1)
[2021-10-11 22:41] LABS: Mean Corpuscular Volume 98.8 fL (83.0-100.0)
[2021-10-12 08:14] LABS: Hematocrit 25.4 % (35.3-44.9); Hemoglobin 8.7 g/dL (11.5-15.4)
[2021-10-12] MEDS: lamoTRIgine 100 MG TABLET PO SCH (08:58)
[2021-10-12] MEDS: Cyanocobalamin (B-12) 1,000 MCG TABLET PO SCH (08:58)
[2021-10-12] MEDS: Celecoxib 200 MG CAPSULE PO SCH (09:00)
[2021-10-12] MEDS: lisinopriL 20 MG TABLET PO SCH (09:01)
[2021-10-12] MEDS: atenoloL 50 MG TABLET PO SCH (09:01)
[2021-10-12] MEDS: Iron Sucrose Complex 200 MG in 0.9 % Sodium Chloride 100 ML IVPB SCH (10:12)
[2021-10-12 11:30] VITALS: BP 120/81; PULSE 90; TEMP 98; O2SAT 95
== END 2021-10-12 13:40 | disposition home health service (06) | DRG 445 ==
LOC: EMEROOARM 11:40 → 3NENU 11:40 → SUATTDRO 21:49 → 3NENU 22:01
PROVIDERS: ADMIT Student in an Organized Health Care Education/Training Program; ATTEND Family Medicine